=== PATIENT | male | born 2000 | race African-American/Black ===

== ENCOUNTER 2025-04-02 14:57 | Emergency (ER) | payer OTHER ==
[~2025-04-02] VITALS: Ht 172.7 cm; Wt 113.3 kg
[2025-04-02 15:02] VITALS: O2SAT 99
[2025-04-02 15:08] VITALS: BP 174/97; PULSE 91; RESP 16; TEMP 36.7; O2SAT 98
== END 2025-04-02 16:53 | disposition left against medical advice (07) ==
LOC: ER 14:57
DX: R07.89 Other chest pain (principal); R06.02 Shortness of breath; F41.9 Anxiety disorder, unspecified; Z53.21 Procedure and treatment not carried out due to patient leaving prior to being seen by health care provider
CPT/HCPCS: 71045; 93005